=== PATIENT | male | born 1970 | race Caucasian/White ===

== ENCOUNTER 2018-10-26 13:00 | Day surgery (SDC) | payer BC ==
[2018-10-26] MEDS ORDERED: PROPOFOL 200 MG INJ (17:19)
[2018-10-26] MEDS ORDERED: PROPOFOL 40 ML (17:19)
[2018-10-26] MEDS ORDERED: LIDOCAINE 2% (SDV) 5 ML INJ (17:19)
== END 2018-10-26 18:48 | disposition home or self-care (01) ==
LOC: GIL 13:00
DX: Z12.11 Encounter for screening for malignant neoplasm of colon (principal); D12.5 Benign neoplasm of sigmoid colon; K64.8 Other hemorrhoids; I10 Essential (primary) hypertension; E78.5 Hyperlipidemia, unspecified
CPT/HCPCS: 45380; 88305